=== PATIENT | female | born 1995 | race Caucasian/White ===

== ENCOUNTER → 2023-01-03 14:03 | Outpatient (BNVA) | payer OTHER, SELFPAY | PROVIDERS: Family Provider Nurse Practitioner Family; PCP Nurse Practitioner Family; Visit Provider Nurse Practitioner Family | DX: R03.0 Elevated blood-pressure reading, without diagnosis of hypertension (principal); R51.9 Headache, unspecified | CPT/HCPCS: 80053; 80061 ==

== ENCOUNTER 2023-01-13 13:34 | Outpatient (CLI) | payer OTHER, SELFPAY ==
--- NOTE | 2023-01-13 14:30 | MR_ITS ---
WS: [id number] MRI HEAD WITH CONTRAST TECHNIQUE: Sagittal T1, T2 axial, T2 axial FLAIR, axial susceptibility weighted imaging, axial diffus ion weighted images, and coronal T2 images were obtained. Pre and post-T1 axial and post T1 coronal i mages. ADC and FSPGR images. CLINICAL INFORMATION: R51.9 - Headache, unspecified COMPARISON: None. FINDINGS: No evidence of restricted diffusion to suggest acute ischemia. Ventricular system and basal cisterns are patent. No suspicious intracranial signal abnormalities. Normal rosado-white differentiation. Incid ental slightly low-lying cerebellar tonsils. Normal 4th ventricle. Normal posterior fossa. Normal vascular flow voids at the skull base. No extra-axial fluid collection s. No evidence of mass or mass effect. Mild mucosal thickening in the paranasal sinuses. Mastoid air cells well aerated. Prominent adenoid tissue normal for a patient this age. No hemosiderin on susceptibly weighted images . Normal optic chiasm and pituitary infundibulum. Temporal lobes and hippocampal formations are sally l in appearance. Normal cavernous sinuses and Meckel's cave. Corpus callosum is normal in appearance. No abnormal gadolinium enhancement. Normal dural venous sinuses. MR/MR head wo/w con [id number] IMPRESSION: 1. No evidence of restricted diffusion to suggest acute ischemia. 2. Incidental slightly low-lying cerebellar tonsils. Normal 4th ventricle. 3. No suspicious intracranial signal abnormalities. 4. No abnormal gadolinium enhancement. 5. Paranasal sinuses and mastoid air cells well aerated. 6. No other suspicious findings.
[2023-01-13] MEDS: gadobenate dimeglumine 20 mL vial IV (15:32)
== END 2023-01-13 13:35 | disposition home or self-care (01) ==
LOC: RAD 13:40
PROVIDERS: PCP Nurse Practitioner Family; Visit Provider Nurse Practitioner Family
DX: R51.9 Headache, unspecified (principal)
CPT/HCPCS: 70553; A9577

== ENCOUNTER → 2025-08-12 08:26 | Outpatient (BNVA) | payer OTHER, SELFPAY | PROVIDERS: PCP Nurse Practitioner Family; Visit Provider Nurse Practitioner Family | DX: J02.9 Acute pharyngitis, unspecified (principal) | CPT/HCPCS: 87880 ==